=== PATIENT | male | born 1985 | race Caucasian/White ===

== ENCOUNTER 2023-12-21 08:54 | Emergency (ER) | payer OTHER ==
[~2023-12-21] VITALS: Ht 170.2 cm; Wt 85.0 kg
[~2023-12-21 08:54] MED LIST: ADVIL200 M1 PO; CYCLOBENZAPRINE10 MG PO; HYDROCODON-ACE1 EAC8 PO; MELOXICAM15 MG PO; METAMUCIL660 GM PO
[2023-12-21] MEDS ORDERED: CEFDINIR300 MG PO ×2 (09:08→12:15)
[2023-12-21] MEDS ORDERED: DOXYCYCLINE MO100 MG PO (09:08)
[2023-12-21 09:21] LABS: BILIRUBIN, URINE NEGATIVE (negative); BLOOD/HGB, URINE NEGATIVE (Negative); KETONE, URINE NEGATIVE (Negative); LEUK ESTERASE, URINE NEGATIVE (negative); NITRITE, URINE NEGATIVE (negative)
[2023-12-21 09:29] LABS: CRYSTALS, URINE NONE SEEN (0-1+); RED BLOOD CELLS, URINE 0-1 /hpf (0-5)
[2023-12-21 09:30] LABS: BASOPHILS 0.6 % (0-2); EOSINOPHILS 0.1 % (0-6); HEMATOCRIT 45.2 % (35.0-50.0); HEMOGLOBIN 15.4 g/dL (12.0-18.0); LYMPHOCYTES 7.8 % (24-44); MCHC 33.9 g/dl (30-36); MCV 88.5 fl (81-99); MONOCYTES 8.2 % (0-12); NEUTROPHILS 83.3 % (39-80); PLATELET COUNT 166 K/uL (140-440); RBC 5.11 M/ul (4.3-5.7); RDW 13.1 (10.5-15.0)
[2023-12-21 09:30] LABS: BACTERIA, URINE RARE /hpf (negative); CASTS, URINE HYALINE 1+ \\lpf; COLLECTION TYPE, URINE CLEAN CATCH; REFLEX CULTURE, URINE No (No)
[2023-12-21 09:47] LABS: ALBUMIN 3.2 g/dL (3.4-5.0); ALBUMIN/GLOBULIN RATIO 0.67 (1.1-2.4); ANION GAP 15.6 (7-21); BILIRUBIN, TOTAL 1.2 ng/dL (0.2-1.0); CALCIUM 9.2 mg/dL (8.5-10.1); CREATININE, SERUM 1.5 mg/dL (0.70-1.30); POTASSIUM 3.6 mmol/L (3.5-5.1)
[2023-12-21] MEDS ORDERED: AZITHROMYCIN 250 MG TAB PO ONE (10:00)
[2023-12-21] MEDS ORDERED: metroNIDAZOLE 250 MG TAB PO ONE (10:00)
[2023-12-21] MEDS ORDERED: PENICILLIN G BENZATHINE 1.2 MUNITS/2 ML SYR IM ONE (10:00)
[2023-12-21] MEDS ORDERED: CEFTRIAXONE SOD 1,000 MG/10 ML VIAL IM ONE (10:00)
[2023-12-21] MEDS ORDERED: CEFTRIAXONE SOD 500 MG VIAL IM ONE (10:15)
[2023-12-21 10:47] LABS: N. GONORRRHOEAE BY PCR NOT DETECTED (NOT DETECT)
[2023-12-21] MEDS ORDERED: TRIAMCINOLONE A15 G3 TOP (12:15)
[2023-12-21] MEDS ORDERED: DOXYCYCLINE HY100 MG PO (12:15)
[2023-12-21 12:33] VITALS: BP 131/95
[2023-12-24 01:50] LABS: TREPONEMA PALLIDUM (VDRL),SER Non Reactive (Non Reactive)
== END 2023-12-21 12:33 | disposition home or self-care (01) ==
LOC: ED 08:54
PROVIDERS: Emergency Medicine
DX: N48.1 Balanitis (principal); A56.01 Chlamydial cystitis and urethritis
CPT/HCPCS: 36415; 80053; 81001; 85025; 86592; 96372; 99283; J0561; J0696